=== PATIENT | female | born 1970 | race Two or more races ===

== ENCOUNTER → 2017-11-27 | Outpatient (CLI) | payer BC ==
--- NOTE | 2017-12-01 12:48 | MM ---
Reason for exam: screening (asymptomatic). Last mammogram was performed 1 year and 4 months ago. History: Taking hormonal contraceptives for 22 years beginning at age 16. Physical Findings: A clinical breast exam by your physician is recommended on an annual basis and results should be correlated with mammographic findings. MG 3D Screening Mammo W/Cad Bilateral CC and MLO view(s) were taken. Prior study comparison: July 25, 2016, mammogram, performed at [facility]. February 17, 2009, bilateral digital screening mammogram. The breast tissue is extremely dense which could obscure a lesion on mammography. No significant changes when compared with prior studies. ASSESSMENT: Benign, BI-RAD 2 RECOMMENDATION: Routine screening mammogram of both breasts in 1 year.
== END | disposition home or self-care (01) ==
LOC: RADMAMWWP 07:32
PROVIDERS: ATTEND Obstetrics & Gynecology
DX: Z12.31 Encounter for screening mammogram for malignant neoplasm of breast (principal)
CPT/HCPCS: 77063; 77067

== ENCOUNTER 2018-04-01 18:05 | Emergency (ER) | payer BC ==
[2018-04-01] MEDS ORDERED: diphenhydrAMINE 50 MG/ML 1 ML VIAL IVP STA (18:36)
[2018-04-01] MEDS ORDERED: ONDANSETRON 4 MG/2 ML VIAL IVP STA (18:36)
[2018-04-01] MEDS ORDERED: MECLIZINE 12.5 MG TAB PO STA (18:36)
[2018-04-01] MEDS ORDERED: SODIUM CHLORIDE 0.9% 500 ML 500 ML IV STA (18:36)
[2018-04-01 19:06] LABS: Basophils % (A) 1 %; Eosinophils # (A) 0.2 k/uL (0-0.7); Eosinophils % (A) 3 %; HCT 42.3 % (34.0-46.0); Lymphocytes # (A) 1.4 k/uL (1.0-4.8); Lymphocytes % (A) 21 %; MCH 30.4 pg (25.0-35.0); MCHC 33.2 g/dL (31.0-37.0); MCV 91.4 fL (80.0-100.0); Mean Platelet Volume 6.9; Monocytes # (A) 0.3 k/uL (0-1.0); Monocytes % (A) 4 %; Neutrophils # (A) 4.7 k/uL (1.3-7.7); Neutrophils % (A) 70 %; Platelet Count 259 k/uL (150-450); RBC 4.62 m/uL (3.80-5.40); RDW 12.2 % (11.5-15.5); WBC 6.7 k/uL (3.8-10.6)
[2018-04-01 19:13] LABS: Anion Gap 10 mmol/L; Blood Urea Nitrogen 14 mg/dL (7-17); Calcium 9.5 mg/dL (8.4-10.2); Carbon Dioxide 24 mmol/L (22-30); Chloride 104 mmol/L (98-107); Glucose 94 mg/dL (74-99); Potassium 4.4 mmol/L (3.5-5.1); Sodium 138 mmol/L (137-145)
--- NOTE | 2018-04-01 19:43 | ED ---
Dizziness HPI - General Chief Complaint: Dizziness Stated Complaint: dizziness Time Seen by Provider: 04/01/18 18:25 Source: patient, RN notes reviewed, old records reviewed Mode of arrival: ambulatory Limitations: no limitations - History of Present Illness Initial Comments: Patient is a healthy 47 year old female with CC of dizziness for 2 days. She reports that The room is spinning. Patient states that she has a family history of vertigo. Patient said she still quite nauseated. It was worse last night as well as today. She states that she had a call off work due to the dizziness. She has not tried any medications help with her dizziness. She denies any specific chest pain or shortness of breath. She denies significant headache or hearing changes. - Related Data Home Medications Medication Instructions Recorded Confirmed Acetaminophen [Tylenol] 1,000 mg PO Q4-6H PRN 04/01/18 04/01/18 Drospir/Eth Estra/Levomefol Ca 1 tab PO DAILY 04/01/18 04/01/18 [Tydemy Tablet] Previous Rx's Medication Instructions Recorded Meclizine [Antivert] 25 mg PO TID #20 tab 04/01/18 Ondansetron Odt [Zofran Odt] 4 mg PO Q8HR PRN #12 tab 04/01/18 Allergies Allergy/AdvReac Type Severity Reaction Status Date / Time latex Allergy Rash/Hives Verified 04/01/18 19:21 Penicillins Allergy Unknown Verified 04/01/18 19:21 Childhood Sulfa (Sulfonamide Allergy Rash/Hives Verified 04/01/18 19:21 Antibiotics) Review of Systems ROS Statement: Those systems with pertinent positive or pertinent negative responses have been documented in the HPI. ROS Other: All systems not noted in ROS Statement are negative. Past Medical History Past Medical History: No Reported History History of Any Multi-Drug Resistant Organisms: None Reported Past Surgical History: Orthopedic Surgery Additional Past Surgical History / Comment(s): bunion, rhinoplasty Past Psychological History: No Psychological Hx Reported Smoking Status: Never smoker Past Alcohol Use History: Daily Past Drug Use History: None Reported General Exam - General Exam Comments Initial Comments: 47-year-old female. Patient appears in no distress. Alert and oriented times three. Limitations: no limitations General appearance: alert, in no apparent distress Head exam: Present: atraumatic, normocephalic, normal inspection Eye exam: Present: normal appearance, PERRL, EOMI (Patient reports worsening dizziness on lateral gaze). Absent: scleral icterus, conjunctival injection, periorbital swelling ENT exam: Present: normal exam, mucous membranes moist Neck exam: Present: normal inspection. Absent: tenderness, meningismus, lymphadenopathy Respiratory exam: Present: normal lung sounds bilaterally. Absent: respiratory distress, wheezes, rales, rhonchi, stridor Cardiovascular Exam: Present: regular rate, normal rhythm, normal heart sounds. Absent: systolic murmur, diastolic murmur, rubs, gallop, clicks GI/Abdominal exam: Present: soft, normal bowel sounds. Absent: distended, tenderness, guarding, rebound, rigid Extremities exam: Present: normal inspection, full ROM, normal capillary refill. Absent: tenderness, pedal edema, joint swelling, calf tenderness Back exam: Present: normal inspection Neurological exam: Present: alert, oriented X3, CN II-XII intact Psychiatric exam: Present: normal affect, normal mood Course Vital Signs 04/01/18 04/01/18 18:17 20:06 Temperature 98.4 F 98.1 F Pulse Rate 68 67 Respiratory 20 18 Rate Blood Pressure 156/86 157/75 O2 Sat by Pulse 97 98 Oximetry EKG Findings - EKG Comments: EKG Findings:: EKG shows sinus rhythm with short IA interval. Otherwise normal EKG noted. Ventricular rate of 81 bpm. " 10 ms. QRS ration 86. QT QTc is 412 /478 ms. Medical Decision Making - Medical Decision Making 47 year old female with 2 days of vertigo like dizziness. She reports it is intermittent and worse with eye movement and head movement. She did vomit once last night. At this time patient has normal EKG, and lab work was unremarkable. She was given antivert, zofran for dizziness. She states that it is improved at this time. Discussed PCP follow up and given instructions on Epply maneuver. Discussed return parameters. - Lab Data Result diagrams: 04/01/18 18:36 04/01/18 18:36 Lab Results 04/01/18 04/01/18 04/01/18 Range/Units 18:36 18:36 18:36 WBC 6.7 (3.8-10.6) k/uL RBC 4.62 (3.80-5.40) m/uL Hgb 14.0 (11.4-16.0) gm/dL Hct 42.3 (34.0-46.0) % MCV 91.4 (80.0-100.0) fL MCH 30.4 (25.0-35.0) pg MCHC 33.2 (31.0-37.0) g/dL RDW 12.2 (11.5-15.5) % Plt Count 259 (150-450) k/uL Neutrophils % 70 % Lymphocytes % 21 % Monocytes % 4 % Eosinophils % 3 % Basophils % 1 % Neutrophils # 4.7 (1.3-7.7) k/uL Lymphocytes # 1.4 (1.0-4.8) k/uL Monocytes # 0.3 (0-1.0) k/uL Eosinophils # 0.2 (0-0.7) k/uL Basophils # 0.0 (0-0.2) k/uL Sodium 138 (137-145) mmol/L Potassium 4.4 (3.5-5.1) mmol/L Chloride 104 (98-107) mmol/L Carbon Dioxide 24 (22-30) mmol/L Anion Gap 10 mmol/L BUN 14 (7-17) mg/dL Creatinine 0.71 (0.52-1.04) mg/dL Est GFR (CKD-EPI)AfAm >90 (>60 ml/min/1.73 sqM) Est GFR (CKD-EPI)NonAf >90 (>60 ml/min/1.73 sqM) Glucose 94 (74-99) mg/dL Calcium 9.5 (8.4-10.2) mg/dL Troponin I <0.012 (0.000-0.034) ng/mL Disposition Clinical Impression: Vertigo Disposition: HOME SELF-CARE Condition: Good Instructions: Vertigo (ED), Dizziness (ED) Additional Instructions: Patient advised to rest, remain hydrated. Patient should be taking Antivert as directed as well as nausea medication. Return to emergency department if any alarming signs symptoms occur. Recommended also following up with ENT specialist or physical therapy. Prescriptions: Meclizine [Antivert] 25 mg PO TID #20 tab Ondansetron Odt [Zofran Odt] 4 mg PO Q8HR PRN #12 tab PRN Reason: Nausea Is patient prescribed a controlled substance at d/c from ED?: No Referrals: John Mane DO [Primary Care Provider] - 1-2 days Ab Donis DO [Doctor of Osteopathic Medicine] - 1-2 days Time of Disposition: 19:44
[2018-04-01 20:07] VITALS: BP 157/75; PULSE 67; RESP 18; TEMP 98.1
== END 2018-04-01 20:06 | disposition home or self-care (01) ==
LOC: EC 18:05
DX: R42 Dizziness and giddiness (principal); R11.0 Nausea; Z79.3 Long term (current) use of hormonal contraceptives; Z91.040 Latex allergy status; Z88.0 Allergy status to penicillin; Z88.2 Allergy status to sulfonamides
CPT/HCPCS: 99284; 96374; 96375; 36415; 93005; 80048; 84484; 85025; J1200; J2405

== ENCOUNTER → 2019-01-20 | Outpatient (CLI) | payer BC ==
--- NOTE | 2019-01-21 14:04 | MM ---
Reason for exam: screening (asymptomatic). Last mammogram was performed 1 year and 2 months ago. History: Taking hormonal contraceptives for 22 years beginning at age 16. Physical Findings: A clinical breast exam by your physician is recommended on an annual basis and results should be correlated with mammographic findings. MG 3D Screening Mammo W/Cad Bilateral CC and MLO view(s) were taken. Prior study comparison: November 27, 2017, bilateral MG 3d screening mammo w/cad. July 25, 2016, mammogram, performed at [facility]. The breast tissue is extremely dense which could obscure a lesion on mammography. No suspicious abnormality. No significant changes when compared with prior studies. ASSESSMENT: Negative, BI-RAD 1 RECOMMENDATION: Routine screening mammogram of both breasts in 1 year.
== END | disposition home or self-care (01) ==
LOC: RADMAMWWP 10:42
PROVIDERS: ATTEND Obstetrics & Gynecology
DX: Z12.31 Encounter for screening mammogram for malignant neoplasm of breast (principal)
CPT/HCPCS: 77063; 77067

== ENCOUNTER → 2019-12-31 | Outpatient (CLI) | payer BC ==
--- NOTE | 2019-12-31 13:57 | BD ---
EXAMINATION TYPE: Axial Bone Density DATE OF EXAM: 12/31/2019 COMPARISON: NONE CLINICAL HISTORY: Height: 65 IN Weight: 135 LBS RISK FACTORS HISTORY OF: Active: YES Diet low in dairy products/other sources of calcium: YES If Premenopausal, do you have irregular periods: YES Take estrogen and/or progesterone medications: NOT NOW How long: CONTROL AGE 20-50 EXAM MEASUREMENTS: Bone mineral densitometry was performed using the [employer] System. Bone mineral density as measured about the Lumbar spine is: ----- L1-L4(G/cm2): 1.456 T Score Values are as follows: ----- L2: 2.0 ----- L3: 2.1 ----- L4: 2.7 ----- L1-L4: 2.3 Bone mineral density BASELINE Bone mineral density about the R hip (g/cm2): 1.076 Bone mineral density about the L hip (g/cm2): 1.125 T Score values are as follows: -----R Neck: 0.3 -----L Neck: 0.6 -----R Total: 0.2 -----L Total: 0.7 Bone mineral density BASELINE IMPRESSION: No evidence for osteoporosis or osteopenia. NOTE: T-SCORE=SD OF THE YOUNG ADULT MEAN.
== END | disposition home or self-care (01) ==
LOC: RADBDWWP 12:47
PROVIDERS: ATTEND Obstetrics & Gynecology
DX: N95.1 Menopausal and female climacteric states (principal)
CPT/HCPCS: 77080

== ENCOUNTER → 2020-02-17 | Outpatient (CLI) | payer BC ==
--- NOTE | 2020-02-21 08:02 | MM ---
Reason for exam: screening (asymptomatic). Last mammogram was performed 1 year and 1 month ago. History: Taking hormonal contraceptives for 22 years beginning at age 16. Physical Findings: A clinical breast exam by your physician is recommended on an annual basis and results should be correlated with mammographic findings. MG Screening Mammo w CAD Bilateral CC and MLO view(s) were taken. Prior study comparison: January 20, 2019, bilateral MG 3d screening mammo w/cad. November 27, 2017, bilateral MG 3d screening mammo w/cad. The breast tissue is heterogeneously dense. This may lower the sensitivity of mammography. No significant changes when compared with prior studies. ASSESSMENT: Benign, BI-RAD 2 RECOMMENDATION: Routine screening mammogram of both breasts in 1 year.
== END | disposition home or self-care (01) ==
LOC: RADMAMWWP 07:44
PROVIDERS: ATTEND Obstetrics & Gynecology
DX: Z12.31 Encounter for screening mammogram for malignant neoplasm of breast (principal)
CPT/HCPCS: 77067

== ENCOUNTER → 2022-01-21 | Outpatient (CLI) | payer BC ==
--- NOTE | 2022-01-22 14:50 | MM ---
Reason for Exam: Screening (asymptomatic). Last mammogram was performed 2 year(s) and 0 month(s) ago. Patient History: Menarche at age 12. First Full-Term at age 28. Late child-bearing (after 28). Patient has history of breast feeding. Hormonal Contraceptives, starting at age 16 for 22 years. Risk Values: Paty 5 year model risk: 1.4%. NCI Lifetime model risk: 10.6%. Prior Study Comparison: 11/27/2017 Bilateral Screening Mammogram, [facility]. 01/20/2019 Bilateral Screening Mammogram, [facility]. 02/17/2020 Bilateral Screening Mammogram, [facility]. Tissue Density: The breast tissue is heterogeneously dense. This may lower the sensitivity of mammography. Findings: Analyzed By CAD. No suspicious interval changes are evident No suspicious groups of microcalcifications, spiculated or lobular masses, architectural distortion or other secondary signs of malignancy are mammographically apparent. Overall Assessment: Benign, BI-RAD 2 Management: Screening Mammogram of both breasts in 1 year. A negative mammogram report should not preclude additional follow up of suspicious palpable abnormalities. Patient should continue monthly self breast exam. A clinical breast exam by your physician is recommended on an annual basis and results should be correlated with mammographic findings. Electronically signed and approved by: Mc Bledsoe D.O. Radiologis
== END | disposition home or self-care (01) ==
LOC: RADMAMWWP 09:55
PROVIDERS: ATTEND Obstetrics & Gynecology
DX: Z12.31 Encounter for screening mammogram for malignant neoplasm of breast (principal)
CPT/HCPCS: 77063; 77067

== ENCOUNTER 2022-04-11 05:27 | Emergency (ER) | payer BC ==
[2022-04-11 05:34] VITALS: TEMP 98
[2022-04-11] MEDS ORDERED: METOCLOPRAMIDE 5 MG/ML 2 ML VIAL IVP STA (06:02)
[2022-04-11] MEDS ORDERED: KETOROLAC 15 MG/ML 1 ML VIAL IVP STA ×2 (06:05→08:16)
[2022-04-11] MEDS ORDERED: SODIUM CHLORIDE 0.9% 1,000 ML IV STA (06:05)
--- NOTE | 2022-04-11 06:12 | ED ---
General Adult HPI - General Source: patient, RN notes reviewed, old records reviewed Mode of arrival: ambulatory <Felix Vega - Last Filed: 04/11/22 07:08> <Hang Foster - Last Filed: 04/11/22 08:18> - General Chief complaint: Back Pain/Injury Stated complaint: Left side pain Time Seen by Provider: 04/11/22 06:00 - History of Present Illness Initial comments: Patient is a 51-year-old female with no significant past medical history who presents emergency Department complaining of a nearly 1 week history of left- sided back pain. States it is located in her left mid back lateral to the midline. Denies any known injury or strain. Describes as a sharp, achy pain that sometimes radiates down towards her left groin and sometimes radiates along the rib. Endorses one episode of nausea and nonbilious nonbloody emesis last Friday no recurrent episodes. Denies any diarrhea. Denies any abdominal pain otherwise. Denies any chest pain or shortness of breath. States the pain does not change with movement. Denies any trauma or known strains. Was seen at an outpatient clinic yesterday where x-rays were obtained as well as a urinalysis but does not have the results was uncertain if they saw anything. Presents today as she connected comfortable when laying down. She tosses and turns at night. Once be reevaluated. Denies any fevers. Denies any midline back pain. Has no urinary complaints including denying dysuria or hematuria. (Felix Vega) - Related Data Home Medications Medication Instructions Recorded Confirmed Acetaminophen [Tylenol] 1,000 mg PO Q4-6H PRN 04/01/18 04/01/18 Drospir/Eth Estra/Levomefol Ca 1 tab PO DAILY 04/01/18 04/01/18 [Tydemy Tablet] Previous Rx's Medication Instructions Recorded Meclizine [Antivert] 25 mg PO TID #20 tab 04/01/18 Ondansetron Odt [Zofran Odt] 4 mg PO Q8HR PRN #12 tab 04/01/18 Cyclobenzaprine [Flexeril] 10 mg PO TID #20 tab 04/11/22 Ketorolac [Toradol] 10 mg PO Q6HR #15 tab 10/20/22 Allergies Allergy/AdvReac Type Severity Reaction Status Date / Time latex Allergy Rash/Hives Verified 04/11/22 05:34 Penicillins Allergy Unknown Verified 04/11/22 05:34 Childhood Sulfa (Sulfonamide Allergy Rash/Hives Verified 04/11/22 05:34 Antibiotics) Review of Systems ROS Other: All systems not noted in ROS Statement are negative. <Felix Vega - Last Filed: 04/11/22 07:08> ROS Other: All systems not noted in ROS Statement are negative. <Hang Foster - Last Filed: 04/11/22 08:18> ROS Statement: Those systems with pertinent positive or pertinent negative responses have been documented in the HPI. Review of Systems: CONST: Denies fever EYES: Denies blurry vision ENT: Denies nasal congestion C/V: Denies Chest pain RESP: Denies shortness of breath GI: Denies abdominal pain : Denies dysuria SKIN: Denies rash. MSK: Endorses left-sided back pain. NEURO: Denies headache (Felix Vega) Past Medical History Past Medical History: No Reported History History of Any Multi-Drug Resistant Organisms: None Reported Past Surgical History: Orthopedic Surgery Additional Past Surgical History / Comment(s): bunion, rhinoplasty Past Psychological History: No Psychological Hx Reported Smoking Status: Never smoker Past Alcohol Use History: Daily Past Drug Use History: None Reported <Felix Vega - Last Filed: 04/11/22 07:08> General Exam <Felix Vega - Last Filed: 04/11/22 07:08> - General Exam Comments Initial Comments: General: Appears in no acute distress. HEAD: Normal with no signs of head trauma. EYES: PERRLA, EOMI, conjunctiva normal, no discharge. ENT: Hearing grossly intact, normal oropharynx. RESPIRATORY: Clear breath sounds bilaterally. No wheezes, rales, or rhonchi. C/V: Regular rate and rhythm. S1 and S2 auscultated, no edema, peripheral pulses 2+ and intact throughout ABD: Abd is soft, nontender, nondistended EXT: Normal range of motion, no obvious deformity. Tetanus to palpation over the left-sided mid back along the inferior ribs spaces. Does not seem to radiate along the rib space currently. No flank tenderness currently. No midline cervical, thoracic, lumbar spine tenderness to palpation. Pain does not radiate. No CVA tenderness to percussion. SKIN: No rashes or lesions observed on exposed skin. NEURO: Alert and oriented 4. No focal sensory or strength deficits. (Felix eVga) Course Vital Signs 04/11/22 05:30 Temperature 98 F Pulse Rate 84 Respiratory 19 Rate Blood Pressure 156/98 O2 Sat by Pulse 98 Oximetry Medical Decision Making - Lab Data Result diagrams: 04/11/22 06:09 04/11/22 06:09 <Felix Vega - Last Filed: 04/11/22 07:08> - Lab Data Result diagrams: 04/11/22 06:09 04/11/22 06:09 <Hang Foster - Last Filed: 04/11/22 08:18> - Medical Decision Making Based on the patient's presentation and physical exam, she appears to be having musculoskeletal back pain has been present for nearly 1 week. However it does not appear to worsen with movement. Does intermittently have flank tenderness and flank pain on the left as well. No urinary complaints. Like to obtain screening UA, electrolytes to evaluate for kidney function as well as signs of a kidney stone at this time. We will also obtain left-sided rib with chest x-ray as well as KUB x-ray. She'll be symptomatically treated with Toradol as well as a 1 L fluid bolus. Vital signs within acceptable limits. Patient was in agreement this plan. Recent laboratory studies are within acceptable limits. Urine shows no signs of hematuria. Kidney function is within normal limits. Patient's chest x-ray and KUB x-ray are unremarkable with no acute findings. On reevaluation, patient still having pain. I did offer her morphine as well as CT imaging to evaluate for possible kidney stone as well as CT thoracic spine and imaging. She was in agreement this plan. At this time it is the end of my shift. Care will be transitioned to Dr. Foster. Disposition is pending completion of workup. (Felix Vega) CT of the thoracic spine and CT of the abdomen and pelvis showed no acute abnormality to explain her pain. I went back in the room and reinterview the patient and examined her back. I was able to reproduce the pain between 2 of the ribs posteriorly on the left. Patient's pain was under control but as she moved around it seemed to exacerbate as I gave the patient more Toradol and 2 more morphine. (Hang Foster) - Lab Data Lab Results 04/11/22 04/11/22 04/11/22 Range/Units 06:09 06:09 06:09 WBC 5.6 (3.8-10.6) k/uL RBC 4.64 (3.80-5.40) m/uL Hgb 14.3 (11.4-16.0) gm/dL Hct 42.3 (34.0-46.0) % MCV 91.1 (80.0-100.0) fL MCH 30.8 (25.0-35.0) pg MCHC 33.8 (31.0-37.0) g/dL RDW 12.4 (11.5-15.5) % Plt Count 252 (150-450) k/uL MPV 7.8 Neutrophils % 68 % Lymphocytes % 23 % Monocytes % 5 % Eosinophils % 3 % Basophils % 0 % Neutrophils # 3.8 (1.3-7.7) k/uL Lymphocytes # 1.3 (1.0-4.8) k/uL Monocytes # 0.3 (0-1.0) k/uL Eosinophils # 0.2 (0-0.7) k/uL Basophils # 0.0 (0-0.2) k/uL Sodium 140 (137-145) mmol/L Potassium 4.4 (3.5-5.1) mmol/L Chloride 103 (98-107) mmol/L Carbon Dioxide 24 (22-30) mmol/L Anion Gap 13 mmol/L BUN 12 (7-17) mg/dL Creatinine 0.73 (0.52-1.04) mg/dL Est GFR (CKD-EPI)AfAm >90 (>60 ml/min/1.73 sqM) Est GFR (CKD-EPI)NonAf >90 (>60 ml/min/1.73 sqM) Glucose 103 H (74-99) mg/dL Calcium 9.4 (8.4-10.2) mg/dL Urine Color Light Yellow Urine Appearance Clear (Clear) Urine pH 5.5 (5.0-8.0) Ur Specific [place] 1.014 (1.001-1.035) Urine Protein Negative (Negative) Urine Glucose (UA) Negative (Negative) Urine Ketones Negative (Negative) Urine Blood Negative (Negative) Urine Nitrite Negative (Negative) Urine Bilirubin Negative (Negative) Urine Urobilinogen <2.0 (<2.0) mg/dL Ur Leukocyte Esterase Trace H (Negative) Urine WBC 1 (0-5) /hpf Ur Squamous Epith Cells <1 (0-4) /hpf Urine Mucus Rare H (None) /hpf Disposition <Felix Vega - Last Filed: 04/11/22 07:08> Is patient prescribed a controlled substance at d/c from ED?: No Time of Disposition: 08:18 <Hang Foster - Last Filed: 04/11/22 08:18> Clinical Impression: Thoracic back pain Disposition: HOME SELF-CARE Condition: Good Instructions (If sedation given, give patient instructions): Musculoskeletal Pain (ED) Prescriptions: Cyclobenzaprine [Flexeril] 10 mg PO TID #20 tab Ketorolac [Toradol] 10 mg PO Q6HR #15 tab Referrals: John Mane DO [Primary Care Provider] - 1-2 days
[2022-04-11 06:46] LABS: Basophils % (A) 0 %; Eosinophils # (A) 0.2 k/uL (0-0.7); Eosinophils % (A) 3 %; HCT 42.3 % (34.0-46.0); HGB 14.3 gm/dL (11.4-16.0); Lymphocytes # (A) 1.3 k/uL (1.0-4.8); Lymphocytes % (A) 23 %; MCH 30.8 pg (25.0-35.0); MCHC 33.8 g/dL (31.0-37.0); MCV 91.1 fL (80.0-100.0); Mean Platelet Volume 7.8; Monocytes # (A) 0.3 k/uL (0-1.0); Monocytes % (A) 5 %; Neutrophils # (A) 3.8 k/uL (1.3-7.7); Neutrophils % (A) 68 %; Platelet Count 252 k/uL (150-450); RBC 4.64 m/uL (3.80-5.40); RDW 12.4 % (11.5-15.5); WBC 5.6 k/uL (3.8-10.6)
[2022-04-11 06:47] LABS: Appearance,Urine Clear (Clear); Bilirubin,Urine Negative (Negative); Blood,Urine Negative (Negative); Color,Urine Light Yellow; Glucose,Urine (UA) Negative (Negative); Ketones,Urine Negative (Negative); Leukocyte Esterase,Urine Trace (Negative); Mucus,Urine Rare /hpf; Nitrite,Urine Negative (Negative); PH, Urine 5.5 (5.0-8.0); Protein,Urine Negative (Negative); Specific Gravity,Urine 1.014 (1.001-1.035); Squamous Epithelial Cell,Urine <1 /hpf (0-4); Urobilinogen,Urine <2.0 mg/dL (<2.0); WBC,Urine 1 /hpf (0-5)
--- NOTE | 2022-04-11 06:56 | XR ---
EXAMINATION TYPE: XR ribs LT w pa chest xray DATE OF EXAM: 04/11/2022 CLINICAL HISTORY: Chest and left-sided rib pain. TECHNIQUE: Single frontal view of the chest is obtained. A frontal and oblique images of the left-leena ed ribs. COMPARISON: None FINDINGS: There is no focal air space opacity, pleural effusion, or pneumothorax seen. The cardiac silhouette size is within normal limits. The osseous structures are intact. Images of left-sided ribs show no acute displaced fracture. No suspicious expansile or destructive le ft-sided rib lesion is seen. Overlying soft tissue is unremarkable. IMPRESSION: No acute process.
--- NOTE | 2022-04-11 06:57 | XR ---
EXAMINATION TYPE: XR KUB DATE OF EXAM: 04/11/2022 6:53 AM CLINICAL HISTORY: Abdominal pain. TECHNIQUE: Two Upright KUB images of the abdomen are obtained. COMPARISON: None. FINDINGS: Air-fluid levels seen in nondistended stomach. Some paucity of small bowel gas. Gas seen in nondistended small bowel loops in the pelvis. Gas and fecal material seen in nondistended colon simon g the periphery. There is no visceromegaly, pneumoperitoneum, or abnormal calcification appreciated. The lung bases are clear. Sclerotic focus over right pubic bone is nonspecific could reflect phleboli th. IMPRESSION: Nonspecific strongly favor nonobstructive bowel gas pattern.
[2022-04-11 06:59] LABS: African American GFR (CKD) >90 (>60 ml/min/1.73 sqM); Anion Gap 13 mmol/L; Blood Urea Nitrogen 12 mg/dL (7-17); Calcium 9.4 mg/dL (8.4-10.2); Carbon Dioxide 24 mmol/L (22-30); Chloride 103 mmol/L (98-107); Glucose 103 mg/dL (74-99); Non-African American GFR(CKD) >90 (>60 ml/min/1.73 sqM); Potassium 4.4 mmol/L (3.5-5.1); Sodium 140 mmol/L (137-145)
[2022-04-11] MEDS ORDERED: MORPHINE SULFATE 2 MG/ML SYRINGE IVP STA ×2 (07:02→08:16)
--- NOTE | 2022-04-11 07:49 | CT ---
EXAMINATION TYPE: CT abdomen pelvis wo con, CT thoracic spine wo con CT DLP: 390 (accession [id number]), 402 (accession [id number]) mGycm, Automated exposure control for dose reduction was used. DATE OF EXAM: 04/11/2022 7:35 AM COMPARISON: Left ribs and chest radiograph 04/11/2022, KUB 04/11/2022. CLINICAL INDICATION:Female, 51 years old with history of left flank pain/back pain; Lt flank pain (ac cession [id number]), Thoracic spine pain (accession [id number]) TECHNIQUE: Standard CT of the abdomen and pelvis without IV or oral contrast. Lack of IV or oral co ntrast limits evaluation of solid and hollow organ viscera. Coronal and sagittal reformats and dedica mikala axial images of the thoracic spine were obtained. FINDINGS: Evaluation is limited due to lack of intravenous contrast and positive intra-abdominal fat. LOWER CHEST: Unremarkable ABDOMEN LIVER: Unremarkable noncontrast appearance. GALLBLADDER AND BILE DUCTS: Unremarkable. PANCREAS: Unremarkable noncontrast appearance. SPLEEN: Unremarkable noncontrast appearance. ADRENAL GLANDS: Unremarkable noncontrast appearance.. KIDNEYS AND URETERS: No evidence of hydronephrosis or renal calculus. No perinephric fat stranding. N o calculi along the expected courses of both ureters. PELVIS BLADDER: Unremarkable REPRODUCTIVE: Unremarkable. ABDOMEN & PELVIS STOMACH AND BOWEL: Stomach and duodenum are unremarkable. No focal wall thickening. Small bowel is no rmal in caliber. Stool is present throughout the large bowel. The appendix is within normal limits. N o evidence of bowel obstruction. PERITONEUM: No evidence of pneumoperitoneum or free fluid. VASCULATURE: No evidence of aortic aneurysm. Pelvic phleboliths. MUSCULOSKELETAL: No acute osseous abnormalities. No obvious central canal or neuroforaminal stenosis. Mild dextrocurvature of the lumbar spine. LYMPH NODES: No gross evidence for lymphadenopathy. SOFT TISSUE/ABDOMINAL WALL: Unremarkable IMPRESSION: 1. No acute abdominal/pelvic process. No obstructive uropathy. 2. No acute osseous abnormality.
[2022-04-11] MEDS ORDERED: ACET/COD 300 MG/30 MG STARTER PACK 6 TAB BTL PO STA (08:19)
[2022-04-11 08:49] VITALS: BP 180/98; PULSE 58; RESP 17
[2022-04-11 10:24] LABS: Chol/HDL Ratio 2.23 Ratio; LDL Cholesterol,Calculated 93.8 mg/dL (0.0-131.0); VLDL Calculation 10.34 mg/dL (5.00-40.00)
== END 2022-04-11 08:48 | disposition home or self-care (01) ==
LOC: EC 05:27
DX: M54.6 Pain in thoracic spine (principal); Z91.040 Latex allergy status; Z88.0 Allergy status to penicillin; Z88.2 Allergy status to sulfonamides; Z79.899 Other long term (current) drug therapy
CPT/HCPCS: 36415; 80061; 80048; 85025; 81001; 71101; 74018; 72128; 74176; 99283; 96374; 96375; 96376 ×2; 96361 ×2; J2270; J1885

== ENCOUNTER → 2023-01-28 | Outpatient (CLI) | payer BC ==
--- NOTE | 2023-01-29 07:47 | MM ---
Reason for Exam: Screening (asymptomatic). Last screening mammogram was performed 12 month(s) ago. Patient History: Menarche at age 12. First Full-Term at age 28. Late child-bearing (after 30). Postmenopausal. Patient has history of breast feeding. Hormonal Contraceptives, starting at age 16 for 22 years. Risk Values: Paty 5 year model risk: 1.4%. NCI Lifetime model risk: 10.4%. Prior Study Comparison: 01/20/2019 Bilateral Screening Mammogram, [facility]. 02/17/2020 Bilateral Screening Mammogram, [facility]. 01/21/2022 Bilateral MG 3D screening mammo w/cad, [facility]. Tissue Density: There are scattered fibroglandular densities. Findings: Analyzed By CAD. There is no suspicious group of microcalcifications or new suspicious mass in either breast. Overall Assessment: Negative, BI-RAD 1 Management: Screening Mammogram of both breasts in 1 year. . Patient should continue monthly self-breast exams. A clinical breast exam by your physician is recommended on an annual basis. This exam should not preclude additional follow-up of suspicious palpable abnormalities. Note on Paty scores and lifetime risk: 1. A Paty score greater than 3% is considered moderate risk. If this is the case, consider specialist referral to assess eligibility for a risk reducing agent. 2. If overall lifetime risk for the development of breast cancer is 20% or higher, the patient may qualify for future screening with alternating mammogram and breast MRI. Electronically signed and approved by: Arturo Matute M.D. Radiologis
== END | disposition home or self-care (01) ==
LOC: RADMAMWWP 08:24
PROVIDERS: ATTEND Obstetrics & Gynecology
DX: Z12.31 Encounter for screening mammogram for malignant neoplasm of breast (principal); Z78.0 Asymptomatic menopausal state
CPT/HCPCS: 77063; 77067

== ENCOUNTER → 2023-02-11 | Outpatient (CLI) | payer BC | LOC: 3 N SLEEP 16:57 | PROVIDERS: ATTEND Internal Medicine Critical Care Medicine | DX: G47.10 Hypersomnia, unspecified (principal); Z91.040 Latex allergy status; Z88.0 Allergy status to penicillin; Z88.2 Allergy status to sulfonamides ==

== ENCOUNTER → 2024-05-21 | Outpatient (CLI) | payer BC ==
--- NOTE | 2024-05-24 08:39 | MM ---
Reason for Exam: Screening (asymptomatic). Last mammogram was performed 1 year(s) and 3 month(s) ago. Patient History: Menarche at age 12. First Full-Term at age 28. Late child-bearing (after 28). Postmenopausal. Patient has history of breast feeding. Hormonal Contraceptives, starting at age 16 for 22 years. Risk Values: Paty 5 year model risk: 1.5%. NCI Lifetime model risk: 10.2%. Prior Study Comparison: 02/17/2020 Bilateral Screening Mammogram, [facility]. 01/21/2022 Bilateral MG 3D screening mammo w/cad, [facility]. 01/28/2023 Bilateral MG 3D screening mammo w/cad, [facility]. Tissue Density: The breasts are heterogeneously dense, which may obscure small masses. Findings: Analyzed By CAD. Right breast: There is no suspicious group of microcalcifications or new suspicious mass. Left breast: There is no suspicious group of microcalcifications or new suspicious mass. Overall Assessment: Negative, BI-RAD 1 Management: Screening Mammogram of both breasts in [address] [facility] will attempt to contact patient to return for supplemental views and ultrasound if indicated. Patient should continue monthly self-breast exams. A clinical breast exam by your physician is recommended on an annual basis. This exam should not preclude additional follow-up of suspicious palpable abnormalities. Note on Paty scores and lifetime risk: 1. A Paty score greater than 3% is considered moderate risk. If this is the case, consider specialist referral to assess eligibility for a risk reducing agent. 2. If overall lifetime risk for the development of breast cancer is 20% or higher, the patient may qualify for future screening with alternating mammogram and breast MRI. [facility], , 05/24/2024 8:36 AM. Electronically signed and approved by: Salvador Garrison DO
== END | disposition home or self-care (01) ==
LOC: RADMAMWWP 12:33
PROVIDERS: ATTEND Family Medicine
DX: Z12.31 Encounter for screening mammogram for malignant neoplasm of breast (principal); Z78.0 Asymptomatic menopausal state; R92.333 Mammographic heterogeneous density, bilateral breasts
CPT/HCPCS: 77063; 77067

== ENCOUNTER → 2024-06-07 | Outpatient (CLI) | payer BC ==
--- NOTE | 2024-06-22 02:30 | CE ---
Holter Monitor STUDY: Holter monitor. INDICATION: Rule out cardiac arrhythmia. The patient was monitored for 24 hours. The baseline rhythm appeared to be sinus mechanism with an average heart rate of 77, minimum heart rate of 57, and maximum heart rate of 130 beats per minute. Ventricular and supraventricular ectopic events noted in less than 1% of the total beats count. No significant sinus pause or sinus arrest noted. CONCLUSION: 1. Sinus rhythm as a baseline mechanism. 2. Rare ventricular and supraventricular ectopic events. 3. No significant sinus pause or sinus arrest. 4. No evidence of atrial fibrillation or atrial flutter. MMODL / IJN: [id number] / MTDD
== END | disposition home or self-care (01) ==
LOC: RADECHMAIN 07:14
PROVIDERS: ATTEND Family Medicine
DX: R00.0 Tachycardia, unspecified (principal)
CPT/HCPCS: 93225